=== PATIENT | female | born 1980 | race Caucasian/White ===

== ENCOUNTER 2020-10-16 12:36 | Outpatient (REF) | payer MEDICAID, SELFPAY | END 2020-10-16 12:37 | disposition home or self-care (01) | LOC: HO.LAB 12:36 | PROVIDERS: Visit Provider Internal Medicine | DX: Z20.828 Contact with and (suspected) exposure to other viral communicable diseases (principal) | CPT/HCPCS: C9803; U0003 ==

== ENCOUNTER 2022-08-14 21:12 | Emergency (ER) | payer MEDICAID, SELFPAY ==
--- NOTE | ~2022-08-14 | XR_ITS ---
EXAMINATION: XR CHEST CLINICAL INFORMATION: Dyspnea. Cough. COMPARISON: None TECHNIQUE: Frontal portable view of the chest was obtained. 9:27 PM FINDINGS: No significant abnormality is noted involving the heart, lungs, mediastinum, bony thorax or soft tissues. XR/XR chest 1V IMPRESSION: Unremarkable examination.
[2022-08-14 21:22] VITALS: BP 130/80; PULSE 116; RESP 38; O2SAT 95; BMI 28.2
--- NOTE | 2022-08-14 21:24 | ED_ITS ---
HPI - SOB/Dyspnea General Chief Complaint: Dyspnea Stated Complaint: SOB AND CHEST PAIN Time Seen by Provider: 08/14/22 21:23 Related Data Previous Rx's Medication Instructions Recorded albuterol sulfate 90 mcg/actuation 2 puff inhalation Q4-6H PRN 08/14/22 aerosol inhaler (ProAir HFA) shortness of breath or wheezing #8.5 grams azithromycin 250 mg tablet See Rx Instructions PO .COMPLEX #6 08/14/22 (Zithromax Z-Otto) tabs prednisone 20 mg tablet 60 mg PO DAILY 5 days #15 tabs 08/14/22 Allergies Allergy/AdvReac Type Severity Reaction Status Date / Time No Known Allergies Allergy Unverified 08/03/20 18:47 [facility] Social History Social History Advance Directives: No Advance Directives Information Provided: No Physical Exam Vital Signs: Vital Signs: Last Vital Signs Temp 98.2 F 08/14/22 21:26 Pulse 102 H 08/14/22 23:47 Resp 20 08/14/22 23:47 BP 105/66 08/14/22 23:47 Pulse Ox 97 08/14/22 23:47 O2 Del Method 08/14/22 23:47 BMI result Body Mass Index 28.2 MDM - SOB/Dyspnea Lab Data Result diagrams: 08/14/22 22:39 08/14/22 22:39 Labs: Lab Results 08/14/22 08/14/22 08/14/22 Range/Units 22:39 22:39 22:39 WBC 18.4 H (4.8-10.8) X10*3/uL RBC 4.19 L (4.20-5.50) X10*6/uL Hgb 12.7 (12.0-16.0) g/dl Hct 36.1 L (37.0-47.0) % MCV 86.2 (80.0-98.0) fL MCH 30.3 (27.0-33.0) pg MCHC 35.2 H (31.0-35.0) g/dl RDW 13.4 (11.0-16.0) % Plt Count 264 (160-400) X10*3/uL MPV 10.3 (9.4-12.3) fL Immature Gran % (Auto) 0.4 (0.0-0.4) % Neut % (Auto) 80.4 H (45-73) % Lymph % (Auto) 12.5 L (20-40) % Union % (Auto) 5.4 (2-11) % Eos % (Auto) 0.9 (0-4) % Baso % (Auto) 0.4 (0-2) % Lymph # (Auto) 2.3 (1.2-4.9) X10*3/uL Union # (Auto) 1.0 (0.1-1.2) X10*3/uL Eos # (Auto) 0.2 (0.0-0.4) X10*3/uL Baso # (Auto) 0.1 (0.0-0.2) X10*3/uL Abs Immat Gran (auto) 0.07 H (0.00-0.03) X10*3/uL Absolute Neuts (auto) 14.7 H (2.0-8.3) x10*3/uL Absolute Nucleated RBC 0.000 (0.0-0.012) X10*3/uL Nucleated RBC % (auto) 0.0 (0.0-0.2) /100WBC PT 12.5 (10.0-13.1) SEC INR 1.1 (0.9-1.1) APTT 34.4 (26.0-36.4) SEC Sodium 140 (135-145) mmol/L Potassium 3.5 (3.3-5.1) mmol/L Chloride 104 (96-108) mmol/L Carbon Dioxide 22 (22-29) mmol/L Anion Gap 18 (12-20) BUN 11 (9-16) mg/dL Creatinine 0.83 (0.5-1.4) mg/dL Estim Creat Clear Calc 95.7 Estimated GFR > 60 Random Glucose 113 (60-115) mg/dL Lactic Acid (0.5-2.0) mmol/L Calcium 9.5 (8.4-10.2) mg/dL Total Bilirubin 0.3 (0.0-1.0) mg/dL AST 17 (5-31) U/L ALT 17 (0-31) U/L Alkaline Phosphatase 75 (39-117) U/L Total Protein 8.0 (6.5-8.0) g/dL Albumin 4.7 (3.5-5.0) g/dL Lipase 11 (8-78) U/L COVID-19 (FELISA) (Negative) COVID-19 Clin Com Influenza Type A (ALDO) (Negative) Influenza Type B (ALDO) (Negative) Influenza A & B Note 08/14/22 08/14/22 08/14/22 Range/Units 22:39 22:40 22:40 WBC (4.8-10.8) X10*3/uL RBC (4.20-5.50) X10*6/uL Hgb (12.0-16.0) g/dl Hct (37.0-47.0) % MCV (80.0-98.0) fL MCH (27.0-33.0) pg MCHC (31.0-35.0) g/dl RDW (11.0-16.0) % Plt Count (160-400) X10*3/uL MPV (9.4-12.3) fL Immature Gran % (Auto) (0.0-0.4) % Neut % (Auto) (45-73) % Lymph % (Auto) (20-40) % Union % (Auto) (2-11) % Eos % (Auto) (0-4) % Baso % (Auto) (0-2) % Lymph # (Auto) (1.2-4.9) X10*3/uL Union # (Auto) (0.1-1.2) X10*3/uL Eos # (Auto) (0.0-0.4) X10*3/uL Baso # (Auto) (0.0-0.2) X10*3/uL Abs Immat Gran (auto) (0.00-0.03) X10*3/uL Absolute Neuts (auto) (2.0-8.3) x10*3/uL Absolute Nucleated RBC (0.0-0.012) X10*3/uL Nucleated RBC % (auto) (0.0-0.2) /100WBC PT (10.0-13.1) SEC INR (0.9-1.1) APTT (26.0-36.4) SEC Sodium (135-145) mmol/L Potassium (3.3-5.1) mmol/L Chloride (96-108) mmol/L Carbon Dioxide (22-29) mmol/L Anion Gap (12-20) BUN (9-16) mg/dL Creatinine (0.5-1.4) mg/dL Estim Creat Clear Calc Estimated GFR Random Glucose (60-115) mg/dL Lactic Acid 1.0 (0.5-2.0) mmol/L Calcium (8.4-10.2) mg/dL Total Bilirubin (0.0-1.0) mg/dL AST (5-31) U/L ALT (0-31) U/L Alkaline Phosphatase (39-117) U/L Total Protein (6.5-8.0) g/dL Albumin (3.5-5.0) g/dL Lipase (8-78) U/L COVID-19 (FELISA) Negative (Negative) COVID-19 Clin Com See Note Influenza Type A (ALDO) Negative (Negative) Influenza Type B (ALDO) Negative (Negative) Influenza A & B Note See Note Discharge Plan Discharge Clinical Impression: Acute upper respiratory infection, Acute bronchospasm Patient Disposition: Home, Self-Care Instructions: Acute Bronchitis (ED), Bronchospasm (ED) Additional Instructions: Your blood work was unremarkable. Your chest x-ray was normal. Your COVID-19 test was negative. Your influenza test was negative I am treating you for acute bronchitis with bronchospasm ( Prescriptions: New azithromycin [Zithromax Z-Otto] 250 mg tablet See Rx Instructions .ROUTE .COMPLEX Qty: 6 0RF Rx Instructions: take 500 mg today (day 1), then 250 mg for 4 days (days 2-5) prednisone 20 mg tablet 60 mg PO DAILY 5 Days Qty: 15 0RF albuterol sulfate [ProAir HFA] 90 mcg/actuation HFA aerosol inhaler 2 puff inhalation Q4-6H PRN (Reason: shortness of breath or wheezing) Qty: 8.5 0RF
[2022-08-14 21:26] VITALS: BP 130/80; PULSE 116; RESP 38; TEMP 36.8; O2SAT 95
--- NOTE | 2022-08-14 21:26 | PC.NURSE ---
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 Everardo Liu MD at bedside and putting in orders for septic w/u.
--- NOTE | 2022-08-14 21:27 | ECG_ITS ---
Test Reason : DYSPNEA Blood Pressure : / mmHG Vent. Rate : 109 BPM Atrial Rate : 109 BPM P-R Int : 122 ms QRS Dur : 082 ms QT Int : 360 ms P-R-T Axes : 071 082 036 degrees QTc Int : 484 ms Sinus tachycardia Otherwise normal ECG No previous ECGs available Referred By: Felipe Liu Electronically Signed By:SERGIO ASCENCIO
--- NOTE | 2022-08-14 21:30 | ED_ITS ---
HPI - SOB/Dyspnea General Chief Complaint: Dyspnea Stated Complaint: SOB AND CHEST PAIN Time Seen by Provider: 08/14/22 21:23 Source: patient and EMS Mode of arrival: EMS Limitations: no limitations History of Present Illness HPI Narrative: 42-year-old female who presents emergency department for evaluation of francesco rtness of breath and cough x1 week. Patient states that she has had a nonproductive cough which is got progressively worse. She states that she has felt short of breath which is also got progressively worse. She states this evening, she is having difficulty breathing so she called an ambulance and was transported to the emergency department. She denied fever, chills, rhinorrhea, sore throat. she denied chest pain. She states she is vaccinated for COVID-19 and she did test herself 1 week prior and she was COVID-19 negative at home. She states she has been vaccinated for COVID-19. She denies any lung conditions such as COPD or asthma. She does smoke less than 1/2 pack of cigarettes per day times 10 years. MD elicited complaint: shortness of breath and cough Onset (ago): week(s) (1) Timing: constant Severity: severe Exacerbating factors: nothing Relieving factors: nothing Associated symptoms: cough Treatment prior to arrival: none Related Data Previous Rx's Medication Instructions Recorded albuterol sulfate 90 mcg/actuation 2 puff inhalation Q4-6H PRN 08/14/22 aerosol inhaler (ProAir HFA) shortness of breath or wheezing #8.5 grams azithromycin 250 mg tablet See Rx Instructions PO .COMPLEX #6 08/14/22 (Zithromax Z-Otto) tabs prednisone 20 mg tablet 60 mg PO DAILY 5 days #15 tabs 08/14/22 Allergies Allergy/AdvReac Type Severity Reaction Status Date / Time No Known Allergies Allergy Unverified 08/03/20 18:47 Review of Systems Review of Systems: Yes all other systems are reviewed and are negative [facility] Past Medical History [facility] Narrative: Past medical history: None. Past surgical history: None. Social history: She smokes less than 1/2 pack of cigarettes per day times 10 years. She occasionally drinks alcohol. She denies drug use. Social History Social History Advance Directives: No Advance Directives Information Provided: No Physical Exam Vital Signs: Vital Signs: Last Vital Signs Temp 98.2 F 08/14/22 21:26 Pulse 118 H 09/28/22 22:08 Resp 25 H 08/14/22 22:08 BP 130/80 08/14/22 21:26 Pulse Ox 95 08/14/22 21:26 O2 Del Method 08/14/22 21:26 BMI result Body Mass Index 28.2 Const: Other: Awake, alert, female patient, she is able to answer questions, she has a very persistent, dry sounding cough , she is tachypneic HEENT: Head: Yes normal to inspection, Yes normocephalic and Yes atraumatic Ears: external ears normal General nose exam: Normal external nose present Face and sinus: Yes normal facial exam Mouth: Normal oral and palatal mucosa present Throat: Yes posterior oropharynx normal Eyes: General: appearance normal, both eyes and all related structures Pupils: Equal, round and reactive pupils present Neck: Neck: Yes normal visual inspection, Yes no lymphadenopathy, Yes trachea midline and Yes supple Chest: Chest palpation & inspection: normal inspection of the chest and normal palpation of entire chest wall Resp: Effort & Inspection: able to speak in complete sentences Auscultation: wheezes ( diffuse) Cardio: Rate: regular rate Rhythm: regular rhythm Heart sounds: S1 normal heart sound present, S2 normal heart sound present and no murmurs GI: Inspection: Yes normal to inspection Palpation (GI): Soft to palpation, nontender and no guarding Auscultation: normal bowel sounds : General: Yes no CVA tenderness Back/Spine/Pelvis: Back: no CVA tenderness Skin: General skin exam: no rashes or lesions noted Neuro: Cranial nerves: Yes CN's II-XII intact bilaterally and Yes Equal, round and reactive pupils present Cognition (Neuro): normal cognition Motor exam (neuro): 5/5 motor strength present throughout Extrem: General: Yes normal to inspection Psych: Appearance: grossly normal Speech and movement: Normal speech and movement present Affect: normal affect Attitude: cooperative Thought process: Normal thought process present Thought content: Normal thought content present Course Course Course Narrative: 42-year-old female who presents emergency department for evaluation of shortness of breath and cough x1 week with symptoms getting worse over the past several days. On presentation the patient was tachycardic with a pulse of 116 and tachypneic with a respiratory rate of 38, she was afebrile and her O2 saturation was 95% on room air. she has a very persistent nonproductive sounding cough. Lung exam revealed diffuse wheezing. I did order laboratory evaluation to include CBC, CMP, lactate, lipase, PT/INR, PTT, COVID-19, influenza,blood cultures x2. One-view chest x-ray was also ordered. Patient's COVID status is unknown therefore she was ordered to get albuterol inhaler with spacer x6 puffs to be given by respiratory therapy. 2321: Laboratory evaluation: WBC elevated 18,400. COVID-19 negative. Influenza negative. Radiology evaluation: Chest x-ray revealed no acute process. Twelve EKG: Tachycardia otherwise unremarkable. Patient's presentation is consistent with either an atypical pneumonia versus acute viral URI. Patient did get improvement with albuterol inhaler, she was given a 2nd dose of 4 puffs. Patient was also given Solu-Medrol 125 mg IV, Toradol 15 mg IV and Zithromax 500 mg orally. she was given prescriptions for albuterol prednisone and Zithromax. She was given printed and verbal instructions and discharged home. MDM - SOB/Dyspnea Lab Data Result diagrams: 08/14/22 22:39 08/14/22 22:39 Labs: Lab Results 08/14/22 08/14/22 08/14/22 Range/Units 22:39 22:39 22:39 WBC 18.4 H (4.8-10.8) X10*3/uL RBC 4.19 L (4.20-5.50) X10*6/uL Hgb 12.7 (12.0-16.0) g/dl Hct 36.1 L (37.0-47.0) % MCV 86.2 (80.0-98.0) fL MCH 30.3 (27.0-33.0) pg MCHC 35.2 H (31.0-35.0) g/dl RDW 13.4 (11.0-16.0) % Plt Count 264 (160-400) X10*3/uL MPV 10.3 (9.4-12.3) fL Immature Gran % (Auto) 0.4 (0.0-0.4) % Neut % (Auto) 80.4 H (45-73) % Lymph % (Auto) 12.5 L (20-40) % Beaver % (Auto) 5.4 (2-11) % Eos % (Auto) 0.9 (0-4) % Baso % (Auto) 0.4 (0-2) % Lymph # (Auto) 2.3 (1.2-4.9) X10*3/uL Beaver # (Auto) 1.0 (0.1-1.2) X10*3/uL Eos # (Auto) 0.2 (0.0-0.4) X10*3/uL Baso # (Auto) 0.1 (0.0-0.2) X10*3/uL Abs Immat Gran (auto) 0.07 H (0.00-0.03) X10*3/uL Absolute Neuts (auto) 14.7 H (2.0-8.3) x10*3/uL Absolute Nucleated RBC 0.000 (0.0-0.012) X10*3/uL Nucleated RBC % (auto) 0.0 (0.0-0.2) /100WBC PT 12.5 (10.0-13.1) SEC INR 1.1 (0.9-1.1) APTT 34.4 (26.0-36.4) SEC Sodium 140 (135-145) mmol/L Potassium 3.5 (3.3-5.1) mmol/L Chloride 104 (96-108) mmol/L Carbon Dioxide 22 (22-29) mmol/L Anion Gap 18 (12-20) BUN 11 (9-16) mg/dL Creatinine 0.83 (0.5-1.4) mg/dL Estim Creat Clear Calc 95.7 Estimated GFR > 60 Random Glucose 113 (60-115) mg/dL Lactic Acid (0.5-2.0) mmol/L Calcium 9.5 (8.4-10.2) mg/dL Total Bilirubin 0.3 (0.0-1.0) mg/dL AST 17 (5-31) U/L ALT 17 (0-31) U/L Alkaline Phosphatase 75 (39-117) U/L Total Protein 8.0 (6.5-8.0) g/dL Albumin 4.7 (3.5-5.0) g/dL Lipase 11 (8-78) U/L COVID-19 (FELISA) (Negative) COVID-19 Clin Com Influenza Type A (ALDO) (Negative) Influenza Type B (ALDO) (Negative) Influenza A & B Note 08/14/22 08/14/22 08/14/22 Range/Units 22:39 22:40 22:40 WBC (4.8-10.8) X10*3/uL RBC (4.20-5.50) X10*6/uL Hgb (12.0-16.0) g/dl Hct (37.0-47.0) % MCV (80.0-98.0) fL MCH (27.0-33.0) pg MCHC (31.0-35.0) g/dl RDW (11.0-16.0) % Plt Count (160-400) X10*3/uL MPV (9.4-12.3) fL Immature Gran % (Auto) (0.0-0.4) % Neut % (Auto) (45-73) % Lymph % (Auto) (20-40) % Beaver % (Auto) (2-11) % Eos % (Auto) (0-4) % Baso % (Auto) (0-2) % Lymph # (Auto) (1.2-4.9) X10*3/uL Beaver # (Auto) (0.1-1.2) X10*3/uL Eos # (Auto) (0.0-0.4) X10*3/uL Baso # (Auto) (0.0-0.2) X10*3/uL Abs Immat Gran (auto) (0.00-0.03) X10*3/uL Absolute Neuts (auto) (2.0-8.3) x10*3/uL Absolute Nucleated RBC (0.0-0.012) X10*3/uL Nucleated RBC % (auto) (0.0-0.2) /100WBC PT (10.0-13.1) SEC INR (0.9-1.1) APTT (26.0-36.4) SEC Sodium (135-145) mmol/L Potassium (3.3-5.1) mmol/L Chloride (96-108) mmol/L Carbon Dioxide (22-29) mmol/L Anion Gap (12-20) BUN (9-16) mg/dL Creatinine (0.5-1.4) mg/dL Estim Creat Clear Calc Estimated GFR Random Glucose (60-115) mg/dL Lactic Acid 1.0 (0.5-2.0) mmol/L Calcium (8.4-10.2) mg/dL Total Bilirubin (0.0-1.0) mg/dL AST (5-31) U/L ALT (0-31) U/L Alkaline Phosphatase (39-117) U/L Total Protein (6.5-8.0) g/dL Albumin (3.5-5.0) g/dL Lipase (8-78) U/L COVID-19 (FELISA) Negative (Negative) COVID-19 Clin Com See Note Influenza Type A (ALDO) Negative (Negative) Influenza Type B (ALDO) Negative (Negative) Influenza A & B Note See Note Discharge Plan Discharge Clinical Impression: Acute upper respiratory infection, Acute bronchospasm Patient Disposition: Home, Self-Care Instructions: Acute Bronchitis (ED), Bronchospasm (ED) Additional Instructions: Your blood work was unremarkable. Your chest x-ray was normal. Your COVID-19 test was negative. Your influenza test was negative I am treating you for acute bronchitis with bronchospasm ( Prescriptions: New azithromycin [Zithromax Z-Otto] 250 mg tablet See Rx Instructions .ROUTE .COMPLEX Qty: 6 0RF Rx Instructions: take 500 mg today (day 1), then 250 mg for 4 days (days 2-5) prednisone 20 mg tablet 60 mg PO DAILY 5 Days Qty: 15 0RF albuterol sulfate [ProAir HFA] 90 mcg/actuation HFA aerosol inhaler 2 puff inhalation Q4-6H PRN (Reason: shortness of breath or wheezing) Qty: 8.5 0RF
[2022-08-14] MEDS: Albuterol Sulfate 90 MCG 8 GM INHALER 6 PUFF INHALE (21:38)
[2022-08-14 21:39] VITALS: PULSE 123; RESP 25; O2SAT 96
[2022-08-14] MEDS: Albuterol Sulfate 90 MCG 8 GM INHALER 4 PUFF INHALE (22:07)
[2022-08-14 22:08] VITALS: PULSE 118; RESP 25; O2SAT 95
[2022-08-14] MEDS: 0.9 % Sodium Chloride 1,000 ML 999 ML IV (22:31)
[2022-08-14 22:45] LABS: MANUAL DIFF FLAG NO
[2022-08-14 22:46] LABS: Basophils Absolute Auto 0.1 X10*3/uL (0.0-0.2); Basophils Percent Auto 0.4 % (0-2); Eosinophils Absolute Auto 0.2 X10*3/uL (0.0-0.4); Eosinophils Percent Auto 0.9 % (0-4); Hematocrit 36.1 % (37.0-47.0); Hemoglobin 12.7 g/dl (12.0-16.0); Imm Gran Abs Auto 0.07 X10*3/uL (0.00-0.03); Imm Gran Pct Auto 0.4 % (0.0-0.4); Lymphocytes Absolute Auto 2.3 X10*3/uL (1.2-4.9); Lymphocytes Percent Auto 12.5 % (20-40); Mean Corpuscular HGB Conc 35.2 g/dl (31.0-35.0); Mean Corpuscular Hemoglobin 30.3 pg (27.0-33.0); Mean Corpuscular Volume 86.2 fL (80.0-98.0); Mean Platelet Volume 10.3 fL (9.4-12.3); Monocytes Percent Auto 5.4 % (2-11); Neutrophils Absolute Auto 14.7 x10*3/uL (2.0-8.3); Neutrophils Percent Auto 80.4 % (45-73); Platelet Count 264 X10*3/uL (160-400); Red Blood Count 4.19 X10*6/uL (4.20-5.50); Red Cell Distribution Width 13.4 % (11.0-16.0); White Blood Count 18.4 X10*3/uL (4.8-10.8)
[2022-08-14 23:02] LABS: Alanine Aminotransferase 17 U/L (0-31); Albumin Level 4.7 g/dL (3.5-5.0); Alkaline Phosphatase 75 U/L (39-117); Anion Gap 18 (12-20); Aspartate Amino Transferase 17 U/L (5-31); Bilirubin Total 0.3 mg/dL (0.0-1.0); Blood Urea Nitrogen 11 mg/dL (9-16); Calcium 9.5 mg/dL (8.4-10.2); Carbon Dioxide 22 mmol/L (22-29); Chloride 104 mmol/L (96-108); Creatinine Clr Calc Pharmacy 95.7; Estimated Glomerular Filt Rate > 60; Glucose Random 113 mg/dL (60-115); INTERNATIONAL NORM RATIO 1.1 (0.9-1.1); Lipase 11 U/L (8-78); Potassium 3.5 mmol/L (3.3-5.1); Prothrombin Time 12.5 SEC (10.0-13.1); Sodium 140 mmol/L (135-145)
[2022-08-14 23:03] LABS: IDNOW Serial# 08D9AD1C; Influenza A Negative (Negative); Influenza B2 Negative (Negative)
[2022-08-14 23:04] LABS: Partial Thromboplastin Time 34.4 SEC (26.0-36.4)
[2022-08-14 23:04] LABS: COVID-19 Test Negative (Negative)
[2022-08-14 23:47] VITALS: BP 105/66; PULSE 102; RESP 20; O2SAT 97
[2022-08-15] MEDS: Ketorolac Tromethamine 15 MG/ML VIAL IVPUSH
[2022-08-15] MEDS: Azithromycin 500 MG TABLET PO (00:01)
[2022-08-15] MEDS: methylPREDNISolone Sod Succ 125 MG/2 ML VIAL IVPUSH (00:01)
[2022-08-15 00:49] VITALS: BP 107/60; PULSE 103; RESP 18; O2SAT 95
== END 2022-08-15 01:00 | disposition home or self-care (01) ==
PROVIDERS: Emergency Provider Emergency Medicine Emergency Medical Services
DX: J06.9 Acute upper respiratory infection, unspecified (principal); J98.01 Acute bronchospasm; Z20.822 Contact with and (suspected) exposure to COVID-19; R06.02 Shortness of breath; F17.210 Nicotine dependence, cigarettes, uncomplicated
CPT/HCPCS: 71045; 80053; 83605; 83690; 85025; 85610; 85730; 87040; 87502; 87635; 93005; 94640; 96361; 96374; 96375; 99284; 99285; J1885; J2930

== ENCOUNTER 2022-11-13 15:07 | Outpatient (REF) | payer MEDICAID, SELFPAY ==
--- NOTE | ~2022-11-13 | US_ITS ---
EXAMINATION: US PELVIS CLINICAL INFORMATION: Excessive and frequent menstruation. COMPARISON: None TECHNIQUE: Ultrasound of the pelvis is performed using both transabdominal and transvaginal transducers along with Doppler. Transvaginal imaging is performed due to inadequate visualization transabdominally. FINDINGS: UTERUS: The uterus is anteverted and anteflexed measuring 11.3 x 5.7 x 6.6 cm. The double wall endometrial thickness is 1.8 mm. A small 1 cm uterine fibroid is noted. ADNEXA: Both ovaries are visualized. There is normal color flow to the adnexa. There is no ovarian torsion. There is a tiny amount of fluid seen in the cul-de-sac. Right ovary measures 3.6 x 2.4 x 2.2 cm for a volume of 9.9 mL with a small echogenic shadowing focus measuring 6.3 x 6 mm. Left ovary measures 2.6 x 1.2 x 1.6 cm for a volume of 2.6 mL. US/US pelvic and transvaginal IMPRESSION: 1. Small 1 cm uterine fibroid. 2. Small echogenic shadowing focus right ovary. A follow-up endovaginal study in 3 months is recommended. 3. A cause for the patient's dysfunctional uterine bleeding has not been found.
== END 2022-11-13 15:08 | disposition home or self-care (01) ==
LOC: HO.US 15:07
PROVIDERS: Visit Provider Advanced Practice Midwife
DX: N92.0 Excessive and frequent menstruation with regular cycle (principal)
CPT/HCPCS: 76830; 76856

== ENCOUNTER 2023-03-07 13:24 | Outpatient (REF) | payer MEDICAID, SELFPAY | END 2023-03-07 13:25 | disposition home or self-care (01) | LOC: HO.US 13:24 | PROVIDERS: PCP Advanced Practice Midwife; Visit Provider Advanced Practice Midwife | DX: Z13.89 Encounter for screening for other disorder (principal) ==

== ENCOUNTER 2023-10-19 22:11 | Emergency (ER) | payer OTHER, SELFPAY ==
--- NOTE | ~2023-10-19 | XR_ITS ---
EXAMINATION: XR CHEST CLINICAL INFORMATION: Shortness of breath, cough COMPARISON: 08/14/2022 TECHNIQUE: 2 views of the chest were obtained. FINDINGS: Lung volumes are symmetric. No focal consolidation is seen. No evidence of pneumothorax, pleural effusion, or pulmonary edema. The cardiomediastinal contour is unremarkable. No acute osseous findings are seen. XR/XR chest 2V IMPRESSION: No acute cardiopulmonary findings.
[2023-10-19 22:29] VITALS: BP 146/85; PULSE 84; RESP 15; TEMP 36.6; O2SAT 96; BMI 26.6
[2023-10-20 00:45] VITALS: BP 120/81; PULSE 85; RESP 16; TEMP 37.1; O2SAT 96
--- NOTE | 2023-10-20 00:45 | PC.NURSE ---
afebrile. vss. swabs sent to lab. awaiting ed provider.
[2023-10-20 00:58] LABS: IDNOW Serial# 08D9AD1C; Strep A Nucleic Acid Negative (Negative)
--- NOTE | 2023-10-20 00:59 | ED.GENADULT ---
HPI - General Adult General Chief complaint: Upper Respiratory Symptoms Stated complaint: flu like symptoms/fatigue/bad cough Time Seen by Provider: 10/20/23 00:48 History of Present Illness HPI narrative: The patient says that she has had a cough and a runny nose and shortness of breath for about a week. She has been taking a lot of NyQuil without relief. She does not know if she has had a fever. She is a smoker. She says she has not been diagnosed with asthma in the past although she has been prescribed albuterol in the past. Related Data Previous Rx's Medication Instructions Recorded albuterol sulfate 90 mcg/actuation 2 puff inhalation Q4-6H PRN 08/14/22 aerosol inhaler (ProAir HFA) shortness of breath or wheezing #8.5 grams azithromycin 250 mg tablet See Rx Instructions PO .COMPLEX #6 08/14/22 (Zithromax Z-Otto) tabs prednisone 20 mg tablet 60 mg (3 x 20 mg) PO DAILY 5 days 08/14/22 #15 tabs albuterol sulfate 90 mcg/actuation 2 puff inhalation Q4-6H PRN 10/20/23 aerosol inhaler shortness of breath or wheezing #8.5 grams azithromycin 250 mg tablet 250 mg PO DAILY 4 days #4 tabs 10/20/23 prednisone 20 mg tablet 40 mg (2 x 20 mg) PO DAILY 4 days 10/20/23 #8 tabs Allergies Allergy/AdvReac Type Severity Reaction Status Date / Time No Known Allergies Allergy Unverified 08/03/20 18:47 Review of Systems Review of Systems: Yes all other systems are reviewed and are negative [facility] Social History Social History Advance Directives: No Advance Directives Information Provided: No Physical Exam ED Vital Signs: Vital Signs - 24 hr 10/19/23 22:29 10/20/23 00:45 10/20/23 01:53 Temperature 97.9 F 98.8 F Pulse Rate 84 85 96 Respiratory Rate 15 16 18 Blood Pressure 146/85 H 120/81 Pulse Oximetry 96 96 Oxygen Delivery Method Room Air Room Air BMI result Body Mass Index 26.6 Const Other: The patient is awake and alert. She sounds very congested but does not seem short of breath. HENMT Other: Pharynx clear. Eyes Other: Pupils are round equal, conjunctivae are clear Neck Other: No stridor Resp Other: No increased work of breathing. The patient has wheezes and rhonchi bilaterally. Cardio Other: Patient has regular rate rhythm without murmur GI Other: Soft and nontender Skin Other: Skin is dry and unremarkable Neuro Other: The patient is awake, alert, appropriate, neurologically intact. Extrem Other: No peripheral edema. Medications Administered Discontinued Medications Generic Name Dose Route Start Last Admin Trade Name Ashok PRN Reason Stop Dose Admin Albuterol/Ipratropium 3 ml 10/20/23 01:32 10/20/23 01:53 Albuterol/Iprat 2.5/0.5mg 3 Ml Ampul.Neb INHALE 10/20/23 01:33 3 ml ONCE ONE Administration Azithromycin 500 mg 10/20/23 02:26 10/20/23 02:33 Azithromycin 500 Mg Tablet PO 10/20/23 02:27 500 mg ONCE ONE Administration Prednisone 60 mg 10/20/23 02:26 10/20/23 02:33 Prednisone 20 Mg Tablet PO 10/20/23 02:27 60 mg ONCE ONE Administration Medical Decision Making Medical Decision Making [facility] Narrative: The patient is a 43-year-old who has had respiratory symptoms including a cough and shortness of breath for a week. She has also had a runny nose. She is quite wheezy on exam. I suspect that she has asthma although she says she does not really consider herself an asthmatic. She will be treated with bronchodilators, prednisone, and azithromycin. She was given a work note. Lab Data Labs: Lab Results 10/20/23 Range/Units 00:40 Influenza Type A (PCR) NEGATIVE (Negative) Influenza Type B (PCR) NEGATIVE (Negative) RSV RNA Qual (PCR) NEGATIVE (Negative) SARS-CoV-2 RNA (RT-PCR) NEGATIVE (Negative) S. pyogenes GrpA ALDO Negative (Negative) Discharge Plan Discharge Clinical Impression: Acute asthmatic bronchitis Patient Disposition: Home, Self-Care Instructions: Asthma (ED) Additional Instructions: Please take the prednisone once a day as prescribed, next dose Friday. Please take the azithromycin once a day as prescribed, next dose Friday. Use the albuterol 2 puffs every 4-6 hours as needed. Rest and take it easy. Drink a lot of fluids. Please make an appointment with your regular medical provider soon to discuss how you are doing. Please try to stop smoking. Return to the emergency room if significantly worse. Prescriptions: New prednisone 20 mg tablet 40 mg PO DAILY 4 Days Qty: 8 0RF azithromycin 250 mg tablet 250 mg PO DAILY 4 Days Qty: 4 0RF albuterol sulfate 90 mcg/actuation HFA aerosol inhaler 2 puff inhalation Q4-6H PRN (Reason: shortness of breath or wheezing) Qty: 8.5 0RF No Action azithromycin [Zithromax Z-Otto] 250 mg tablet See Rx Instructions .ROUTE .COMPLEX Qty: 6 0RF Rx Instructions: take 500 mg today (day 1), then 250 mg for 4 days (days 2-5) prednisone 20 mg tablet 60 mg PO DAILY 5 Days Qty: 15 0RF albuterol sulfate [ProAir HFA] 90 mcg/actuation HFA aerosol inhaler 2 puff inhalation Q4-6H PRN (Reason: shortness of breath or wheezing) Qty: 8.5 0RF Stand Alone Forms: Work/School Release Interventions: ED Discharge Assessment Last Done: 10/20/23 02:42 Discharge Date/Time: 10/20/23 02:45
[2023-10-20 01:24] LABS: Influenza A PCR NEGATIVE (Negative); Influenza B PCR NEGATIVE (Negative); Resp Syncy Virus RNA Qual PCR NEGATIVE (Negative); SARS COV2 PCR INHOUSE NEGATIVE (Negative)
[2023-10-20 01:53] VITALS: PULSE 96; RESP 18; O2SAT 95
[2023-10-20] MEDS: Albuterol/Iprat 2.5/0.5MG 3 ML AMPUL.NEB INHALE (01:53)
[2023-10-20] MEDS: Azithromycin 500 MG TABLET PO (02:33)
[2023-10-20] MEDS: predniSONE 20 MG TABLET 60 MG PO (02:33)
== END 2023-10-20 02:45 | disposition home or self-care (01) ==
PROVIDERS: Emergency Provider Emergency Medicine; PCP Advanced Practice Midwife
DX: J45.909 Unspecified asthma, uncomplicated (principal); R05.9 Cough, unspecified; R06.02 Shortness of breath; Z20.822 Contact with and (suspected) exposure to COVID-19; Z20.828 Contact with and (suspected) exposure to other viral communicable diseases
CPT/HCPCS: 0241U; 71046; 87651; 99284